=== PATIENT | female | born 1995 | race Hispanic/Latino ===

== ENCOUNTER 2017-09-19 23:39 | Emergency (ER) | payer OTHER ==
[~2017-09-19 23:39] MED LIST: AMOXIL500 MG PO; CIPRO500 M1 PO; DOXYCYCLINE100 MG PO; IBUPROFEN600 M1 PO; IBUPROFEN800 M1 PO; MOTRIN600 MG PO; PREDNISONE 20MG20 MG PO
[2017-09-20 00:49] LABS: ABSOLUTE BASOPHIL COUNT 0.1 /CUMM (0.0-0.2); ABSOLUTE EOSINOPHIL COUNT 0.1 /CUMM (0.0-0.7); ABSOLUTE GRANULOCYTE CT 8.3 /CUMM (1.4-6.5); ABSOLUTE MONOCYTE COUNT 0.5 /CUMM (0.10-0.60); BASOPHIL % 0.5 % (0.0-2.0); EOSINOPHIL % 1.2 % (0-5); GRANULOCYTE % 75.2 % (42.2-75.2); HEMATOCRIT 38.9 % (37-47); MEAN CORPUSCULAR HGB CONC 34.5 G/DL (33.0-37.0); MEAN PLATELET VOLUME 7.4 FL (7.4-10.4); PLATELET COUNT 234 /CUMM (130-400); RBC DISTRIBUTION WIDTH 13.2 % (11.5-14.5); RED BLOOD CELL CT 4.32 /CUMM (4.20-5.40)
--- NOTE | 2017-09-20 01:53 | ED GI/GU/ABDOMINAL COMPLAINT ---
History of Present Illness General Chief Complaint: Abdominal Pain/Flank Pain Stated Complaint: UPPER ABD PAIN PER MOM +VOMITING Source: patient, family, old records Exam Limitations: no limitations Vital Signs & Intake/Output Vital Signs & Intake/Output Vital Signs Date Time Temp Pulse Resp B/P B/P Pulse O2 O2 Flow FiO2 Mean Ox Delivery Rate 09/20 0212 68 18 113/65 99 Room Air 09/20 0032 100 Room Air 09/20 0010 97.7 67 18 132/94 98 Room Air Allergies Coded Allergies: No Known Allergies (09/20/17) Reconcile Medications No Known Home Medications Triage Note: TRIAGE: PATIENT TO ER FROM HOME REPORTING +MID UPPER ABD PAIN "ALL DAY, FAMILY HX GALLBLADDER PROBLEMS." +VOMITTING IN WAITING ROOM, +NAUSEA. PATIENT DENIES URINARY DIFFICULTIES, DENIES DIARRHEA. Triage Nurses Notes Reviewed? yes LMP (ages 10-50): unknown ? n Is pt currently ? No Onset: Just prior to arrival Duration: minute(s):, constant, changing over time Timing: recent history Quality/Severity: aching, sharpness, severe, vomiting Location: epigastric, right upper quadrant Radiation: back Activities at Onset: rest Prior Abdominal Problems: similar symptoms Past Sexual History: Unobtainable at this time Modifying Factors: Worsens With: palpation. Associated Symptoms: abdominal pain, loss of appetite, nausea/vomiting HPI: Prior to admission patient complains of sharp severe epigastric pain constant radiating to her back associated with nausea vomiting. She has had previous episodes but not as severe. She denies fever chills diarrhea chest pain cough shortness of breath headache dysuria rash bleeding Past History Travel History Traveled to [place] past 21 day No Medical History Any Pertinent Medical History? none Neurological: NONE EENT: NONE Cardiovascular: NONE Respiratory: NONE Gastrointestinal: NONE Hepatic: NONE Renal: NONE Musculoskeletal: NONE Psychiatric: NONE Endocrine: NONE Blood Disorders: NONE Cancer(s): NONE MEAT PROCESS WORKER/Reproductive: IUD Tetanus Vaccine: 09/07/11 Surgical History Surgical History: section Psychosocial History What is your primary language Khmer Tobacco Use: Current Daily Use Daily Tobacco Use Amount/Type: => 5 Cigarettes daily Family History Hx Contributory? No Review of Systems Review of Systems Constitutional: Reports: see HPI, weakness. EENTM: Reports: no symptoms. Respiratory: Reports: no symptoms. Cardiovascular: Reports: no symptoms. GI: Reports: see HPI, abdominal pain, nausea, vomiting. Genitourinary: Reports: no symptoms. Musculoskeletal: Reports: no symptoms. Skin: Reports: no symptoms. Neurological/Psychological: Reports: no symptoms. Hematologic/Endocrine: Reports: no symptoms. Immunologic/Allergic: Reports: no symptoms. All Other Systems: Reviewed and Negative Physical Exam Physical Exam General Appearance: well developed/nourished, alert, awake, anxious, severe distress Head: atraumatic, normal appearance Eyes: Bilateral: normal appearance, PERRL, EOMI, normal inspection. Ears, Nose, Throat, Mouth: hearing grossly normal, moist mucous membrane Neck: normal inspection, supple, full range of motion, normal alignment, no midline tenderness Respiratory: normal breath sounds, chest non-tender, no respiratory distress, quiet respiration, lungs clear Cardiovascular: regular rate/rhythm, normal peripheral pulses, norml femoral pulses equa Peripheral Pulses: 4+ carotid (R), 4+ carotid (L) Gastrointestinal: normal bowel sounds, soft, guarding, tenderness Back: normal inspection, normal range of motion Extremities: normal range of motion, no ligament instability Neurologic/Psych: no motor/sensory deficits, awake, alert, oriented x 3, normal gait, normal mood/affect, 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 No Sepsis Present: No Sepsis Focused Exam Completed? No Progress Differential Diagnosis: biliary colic, gastritis Plan of Care: Orders Procedure Date/time Status LIPASE 09/20 29 Complete HUMAN BETA HCG SCREEN 09/20 29 Complete COMPREHENSIVE METABOLIC PANEL 09/20 29 Complete CBC WITHOUT DIFFERENTIAL 09/20 29 Complete AMYLASE 09/20 29 Complete Laboratory Tests 09/20/17 003: Anion Gap 12, Estimated GFR > 60, BUN/Creatinine Ratio 15.7, Glucose 82, Calcium 9.8, Total Bilirubin 0.6, AST 25, ALT 29, Alkaline Phosphatase 57, Total Protein 7.5, Albumin 4.2, Globulin 3.3, Albumin/Globulin Ratio 1.3, Amylase 46, Lipase 35, Total Beta HCG NEGATIVE, CBC w Diff NO MAN DIFF REQ, RBC 4.32, MCV 90.0, MCH 31.0, MCHC 34.5, RDW 13.2, MPV 7.4, Gran % 75.2, Lymphocytes % 18.3 L, Monocytes % 4.8, Eosinophils % 1.2, Basophils % 0.5, Absolute Granulocytes 8.3 H, Absolute Lymphocytes 2.0, Absolute Monocytes 0.5, Absolute Eosinophils 0.1, Absolute Basophils 0.1 Diagnostic Imaging: Viewed by Me: CT Scan. Discussed w/RAD: CT Scan. Radiology Impression: No evidence for acute abdominal or pelvic inflammatory or infectious processes. Initial ED EKG: none Departure Departure Time of Disposition: 337 Disposition: HOME OR SELF CARE Condition: Stable Clinical Impression Primary Impression: Biliary colic Secondary Impressions: Abdominal pain, Nausea and vomiting Referrals: Yayo SCOTT,Yenny Castro (PCP/Family) Aniceto CURRAN,Iftikhar Jack Call for surgical follow up Departure Forms: Customer Survey General Discharge Information Prescriptions: Current Visit Scripts Ondansetron (Zofran Odt) 1 TAB SL TID PRN nausea #10 TAB Hyoscyamine Sulfate (Levsin-Sl) 1 TAB SL Q4P PRN abdominal pain #30 TAB Ibuprofen 1 TAB PO Q6P PRN pain #50 TAB with food
--- NOTE | 2017-09-20 01:56 | CT SCAN REPORT ---
EXAMINATION: CT ABDOMEN AND PELVIS WITH CONTRAST CLINICAL INFORMATION: Right upper quadrant pain. COMPARISON: March 09, 2015. TECHNIQUE: Contiguous axial thin section helical images of the abdomen and pelvis were performed following the administration of 95 mL of intravenous Optiray 320. The data set was reformatted in the coronal and sagittal planes and reviewed on an independent workstation. DLP: 296 mGy-cm. FINDINGS: The visualized lung bases are clear. The visualized portions of the heart are unremarkable. The liver is of normal size and attenuation without focal lesions nor intrahepatic biliary ductal dilation. A normal gallbladder is identified. There is no wall thickening or discernible pericholecystic fluid. The spleen, pancreas, adrenal glands are unremarkable. Both kidneys are of normal size and attenuation without hydronephrosis or nephrolithiasis. Following the administration of IV contrast, prompt symmetric nephrograms are displayed. There is no abdominal free fluid. There is neither mesenteric nor retroperitoneal lymphadenopathy. Normal unopacified loops of small and large bowel are identified. There is no pelvic free fluid. In IUD is in appropriate position. The urinary bladder is unremarkable. There is neither pelvic nor inguinal lymphadenopathy. Bone windows: Neither sclerotic nor lytic bone lesions are identified. IMPRESSION: No evidence for acute abdominal or pelvic inflammatory or infectious processes.
[2017-09-20] MEDS ORDERED: LEVSIN-SL0.125 MG SL (03:39)
[2017-09-20] MEDS ORDERED: ZOFRAN ODT4 M1 SL (03:39)
[2017-09-20] MEDS ORDERED: IBUPROFEN600 M1 PO (03:39)
[2017-09-20 04:39] VITALS: BP 102/67
== END 2017-09-20 04:41 ==
LOC: ERH 23:39
PROVIDERS: Emergency Medicine
DX: K80.50 Calculus of bile duct without cholangitis or cholecystitis without obstruction (principal); R11.2 Nausea with vomiting, unspecified; R10.13 Epigastric pain
CPT/HCPCS: 74177; 96361; 96365; 96375; J0131; J1885; J2405